=== PATIENT | female | born 2000 | race Caucasian/White ===

== ENCOUNTER 2023-05-06 17:42 | Emergency (ER) | payer OTHER ==
[2023-05-06 17:55] VITALS: BP 130/75; O2SAT 100
[2023-05-06 18:22] LABS: BASOPHILS # (AUTO) 0.1 10^3/uL (0.0-0.1); BASOPHILS % (AUTO) 0.4 %; EOSINOPHILS # (AUTO) 0.1 10^3/uL (0.0-0.7); EOSINOPHILS % (AUTO) 0.6 %; HCT - HEMATOCRIT 42.4 % (37.0-47.0); HGB - HEMOGLOBIN 14.3 g/dL (12.0-16.0); LYMPHOCYTES # (AUTO) 2.4 10^3/uL (1.5-3.5); LYMPHOCYTES % (AUTO) 20.8 %; MEAN CORPUSCULAR HEMOGLOBIN 30.7 pg (27.0-31.0); MEAN CORPUSCULAR HGB CONC 33.7 g/dL (32.0-36.0); MEAN PLATELET VOLUME 9.3 fL (7.9-10.8); MONOCYTES # (AUTO) 0.8 10^3/uL (0.0-1.0); MONOCYTES % (AUTO) 6.8 %; NEUTROPHILS # (AUTO) 8.3 10^3/uL (1.5-6.6); NEUTROPHILS % (AUTO) 71.1 %; PLT - PLATELET COUNT 280 10^3/uL (130-450); RED BLOOD COUNT 4.66 10^6/uL (4.20-5.40); WHITE BLOOD COUNT 11.7 x10^3/uL (4.8-10.8)
[2023-05-06 18:38] LABS: ALBUMIN 4.6 g/dL (3.2-5.5); ALBUMIN/GLOBULIN RATIO 1.4 (1.0-2.2); ALKALINE PHOSPHATASE 57 IU/L (42-121); ALT ALANINE AMINOTRANSFERASE 11 IU/L (10-60); AST ASPARTATE AMINOTRANSFERASE 18 IU/L (10-42); BILIRUBIN,TOTAL 0.3 mg/dL (0.2-1.0); BUN - BLOOD UREA NITROGEN 7 mg/dL (6-20); CALCIUM 9.7 mg/dL (8.5-10.3); CARBON DIOXIDE - CO2 25 mmol/L (21-32); CHLORIDE 101 mmol/L (101-111); CREATININE 0.6 mg/dL (0.6-1.3); GFR - MDRD 125 (>89); GLUCOSE 100 mg/dL (74-104); LIPASE 25 U/L (11-82); POTASSIUM 3.6 mmol/L (3.5-4.5); SODIUM 133 mmol/L (135-145)
[2023-05-06 18:43] LABS: TROPONIN I HIGH SENSITIVITY < 2.3 ng/L (2.3-14.8)
--- NOTE | 2023-05-06 18:51 | ED Physician Documentation ---
History of Present Illness - Stated complaint Stated Complaint: SOA,CHEST PX,DIZZINESS - Chief complaint Chief Complaint: Resp - Additonal information Additional information: 23-year-old female presents emergency department for evaluation of progressive shortness of air over the last 2 weeks. She states that initially she did not think much of it but is found that it is difficult to do her PT exercises in the [place] without feeling short of air especially when doing [place]. Patient reports that for quite some time she has been having issues with her heart. Because it wonky. States she is being evaluated for tachycardia and has a referral to cardiology pending. Patient is at this time approximately 10 weeks . A1. LMP 02/28/2023. Scheduled to see our OB clinic in follow-up this upcoming week. Patient denies any cough, fevers, leg swelling, no nausea or vomiting. She is denying any chest pain. Past medical history most significant for anxiety/depression only currently taking sertraline. Review of Systems Constitutional: denies: Fever Throat: reports: Reviewed and negative Cardiac: denies: Chest pain / pressure, Palpitations Respiratory: reports: Dyspnea. denies: Cough, Hemoptysis, Wheezing GI: reports: Reviewed and negative : reports: Reviewed and negative Skin: reports: Reviewed and negative PD PAST MEDICAL HISTORY - Allergies Allergies/Adverse Reactions: Allergies Allergy/AdvReac Type Severity Reaction Status Date / Time No Known Drug Allergies Allergy Verified 05/06/23 17:48 PD ED PE NORMAL - General General: Alert and oriented X 3, No acute distress - HEENT HEENT: PERRL - Neck Neck: Supple, no meningeal sign - Cardiac Cardiac: RRR (Sinus tachycardia on the monitor rate of 104), No murmur - Respiratory Respiratory: No respiratory distress, Clear bilaterally - Abdomen Abdomen: Normal bowel sounds, Soft, Non tender, Non distended - Back Back: No CVA TTP - Derm Derm: Normal color, Warm and dry, No rash - Extremities Extremities: No deformity - Neuro Neuro: Alert and oriented X 3, digital imager 2-12 intact Eye Opening: Spontaneous Motor: Obeys Commands Verbal: Oriented GCS Score: 15 Results - Vitals Vitals: Vital Signs - 24 hr 05/06/23 05/06/23 17:48 17:51 Temperature 36.5 C 36.5 C Heart Rate 114 H 114 H Respiratory 16 16 Rate Blood Pressure 130/75 130/75 O2 Saturation 100 100 Oxygen O2 Source Room air - EKG (time done) 1824 EKG releavant findings:: EKG personally interpreted by author of this note. Relevant findings are: Rate: Rate (enter#) (107) Rhythm: Sinus tachycardia [place]: Normal Intervals: Normal [place]. No: Prolonged QT QRS: Normal Ischemia: Normal ST segments Compare to prior EKG: Old EKG unavailable Computer interpretation: Agree with computer - Labs Labs: Laboratory Tests 05/06/23 05/06/23 05/06/23 15:35 18:14 18:14 WBC 11.7 H RBC 4.66 Hgb 14.3 Hct 42.4 MCV 91.0 MCH 30.7 MCHC 33.7 RDW 12.0 Plt Count 280 MPV 9.3 Neut # (Auto) 8.3 H Lymph # (Auto) 2.4 [place] # (Auto) 0.8 Eos # (Auto) 0.1 Baso # (Auto) 0.1 Absolute Nucleated RBC 0.00 Nucleated RBC % 0.0 Sodium 133 L Potassium 3.6 Chloride 101 Carbon Dioxide 25 Anion Gap 7.0 BUN 7 Creatinine 0.6 Estimated GFR (MDRD) 125 Glucose 100 Calcium 9.7 Total Bilirubin 0.3 AST 18 ALT 11 Alkaline Phosphatase 57 Troponin I High Sens < 2.3 L B-Natriuretic Peptide Total Protein 8.0 Albumin 4.6 Globulin 3.4 Albumin/Globulin Ratio 1.4 Lipase 25 Serum HCG, Qual Nasal Adenovirus (PCR) NOT DETECTED Nasal B. parapertussis DNA (PCR) NOT DETECTED Nasal Coronavir 229E PCR NOT DETECTED Nasal Coronavir HKU1 PCR NOT DETECTED Nasal Coronavir NL63 PCR NOT DETECTED Nasal Coronavir OC43 PCR NOT DETECTED Nasal Enterovir/Rhinovir PCR NOT DETECTED Nasal Influenza B PCR NOT DETECTED Nasal Influenza A PCR NOT DETECTED Nasal Parainfluen 1 PCR NOT DETECTED Nasal Parainfluen 2 PCR NOT DETECTED Nasal Parainfluen 3 PCR NOT DETECTED Nasal Parainfluen 4 PCR NOT DETECTED Nasal RSV (PCR) NOT DETECTED Nasal B.pertussis DNA PCR NOT DETECTED Nasal C.pneumoniae (PCR) NOT DETECTED Jamie Human Metapneumo PCR NOT DETECTED Nasal M.pneumoniae (PCR) NOT DETECTED Nasal SARS-CoV-2 (PCR) NOT DETECTED 05/06/23 05/06/23 18:14 18:14 WBC RBC Hgb Hct MCV MCH MCHC RDW Plt Count MPV Neut # (Auto) Lymph # (Auto) [place] # (Auto) Eos # (Auto) Baso # (Auto) Absolute Nucleated RBC Nucleated RBC % Sodium Potassium Chloride Carbon Dioxide Anion Gap BUN Creatinine Estimated GFR (MDRD) Glucose Calcium Total Bilirubin AST ALT Alkaline Phosphatase Troponin I High Sens B-Natriuretic Peptide 11 Total Protein Albumin Globulin Albumin/Globulin Ratio Lipase Serum HCG, Qual POSITIVE Nasal Adenovirus (PCR) Nasal B. parapertussis DNA (PCR) Nasal Coronavir 229E PCR Nasal Coronavir HKU1 PCR Nasal Coronavir NL63 PCR Nasal Coronavir OC43 PCR Nasal Enterovir/Rhinovir PCR Nasal Influenza B PCR Nasal Influenza A PCR Nasal Parainfluen 1 PCR Nasal Parainfluen 2 PCR Nasal Parainfluen 3 PCR Nasal Parainfluen 4 PCR Nasal RSV (PCR) Nasal B.pertussis DNA PCR Nasal C.pneumoniae (PCR) Jamie Human Metapneumo PCR Nasal M.pneumoniae (PCR) Nasal SARS-CoV-2 (PCR) - Rads (name of study) cxr Relevant Findings:: Final report received (no acte process) PD Medical Decision Making - ED course Complexity details: reviewed results, re-evaluated patient, d/w patient ED course: 23-year-old female who is reportedly 10 weeks presents the emergency department for evaluation of several weeks shortness of air. No cough, fevers, congestion. No leg swelling. No history of blood clots or cancer. Denies chest pain. She does have a longstanding history of reported tachycardia for which she has recently received a referral to cardiology though this has not yet been established. On presentation to the emergency department she is alert and well-appearing. Her vital signs show mild tachycardia that vacillates between 101 10. Sinus. Blood pressure is normal. No fevers. Room air saturations 100%. Car pulmonary auscultation revealed no wheeze or crackles. I did obtain CBC, electrolytes troponin and BNP. Per my interpretation no acute worrisome abnormalities to suggest heart failure, ACS or acute infection. Res piratory PCR panel was negative. A chest x-ray as interpreted by the radiologist showed no findings to suggest pneumonia, pleural effusion or cardiomegaly. I have very low suspicion that the patient has a PE given the chronicity of her symptoms, lack of hypoxia and by Wells criteria. I discussed the imaging findings with the patient and her at the bedside and they were comfortable with discharge home. They are scheduled to establish with OB next week I discussed with them the usual emergent return precautions for failure of symptoms to resolve Departure - Departure Disposition: 01 Home, Self Care Clinical Impression: Shortness of breath Condition: Stable Record reviewed to determine appropriate education?: Yes Comments: You are seen today in the emergency department because for several weeks you have been having shortness of air. Today in the emergency department your EKG, chest x-ray and labs did not show any worrisome findings. You do not appear to have heart failure, heart attack, pneumonia or pleural effusion. Your oxygen levels today in the emergency department are normal. I encourage you to continue the follow-up with referral to cardiology that is already been placed. Continue to see OB next week. Reasons for you to return to the emergency department would include worsening of symptoms, any fainting episodes, sudden severe chest pain or severe shortness of air Forms: PCP List
[2023-05-06 18:59] LABS: HCG,QUALITATIVE BLOOD POSITIVE
[2023-05-06 19:34] LABS: B. PARAPERTUSSIS- RESP PCR PAN NOT DETECTED; B. PERTUSSIS- RESP PCR PANEL NOT DETECTED; C. PNEUMONIAE- RESP PCR PANEL NOT DETECTED; CORONAVIRUS 229E-RESP PCR NOT DETECTED; CORONAVIRUS HKU1-RESP PCR NOT DETECTED; CORONAVIRUS NL63-RESP PCR NOT DETECTED; CORONAVIRUS OC43-RESP PCR NOT DETECTED; HUMAN METAPNEUMOVIRUS NOT DETECTED; INFLUENZA A- RESP PCR PANEL NOT DETECTED; INFLUENZA B - RESP PCR PANEL NOT DETECTED; M. PNEUMONIAE- RESP PCR PANEL NOT DETECTED; PARAINFLUENZA VIRUS 1 NOT DETECTED; PARAINFLUENZA VIRUS 2 NOT DETECTED; PARAINFLUENZA VIRUS 3 NOT DETECTED; PARAINFLUENZA VIRUS 4 NOT DETECTED; RHINOVIRUS/ENTEROVIRUS NOT DETECTED; RSV- RESP PCR PANEL NOT DETECTED; SARS-CoV-2 -RESP PCR PANEL NOT DETECTED
--- NOTE | 2023-05-06 20:19 | XRAY Report ---
PROCEDURE: Chest 1 View X-Ray INDICATIONS: Chest Pain TECHNIQUE: One view of the chest was acquired. COMPARISON: None. FINDINGS: Surgical changes and devices: None. Lungs and pleura: No pleural effusions or pneumothorax. Lungs are clear. Mediastinum: Mediastinal contours appear normal. Heart size is normal. Bones and chest wall: No suspicious bony lesions. Overlying soft tissues appear unremarkable. IMPRESSION: No acute cardiopulmonary process. Reviewed by: Kayla Goodwin MD on 05/06/2023 8:18 PM PDT Approved by: Kayla Goodwin MD on 05/06/2023 8:18 PM PDT Station ID: [id number]
== END 2023-05-06 20:35 | disposition home or self-care (01) ==
LOC: ED 17:42
DX: O99.891 Other specified diseases and conditions complicating pregnancy (principal); R06.02 Shortness of breath; Z20.822 Contact with and (suspected) exposure to COVID-19; Z3A.10 10 weeks gestation of pregnancy
CPT/HCPCS: 36415; 80053; 83690; 83880; 84484; 84703; 85025; 85379; 87633; 93005; 99283; 99284

== ENCOUNTER 2023-05-19 19:52 | Outpatient (CLI) | payer OTHER ==
--- NOTE | 2023-05-20 15:23 | Ultrasound Report ---
PROCEDURE: OB First Trimester w/TV INDICATIONS: POSITIVE TEST OUTSIDE/PRIOR DATING DATA: Last menstrual period (LMP): 02/28/2023. LMP-based estimated date of delivery (AMANDA): 12/05/2023. First dating scan (date and location): 05/19/2023. Estimated date of delivery (AMANDA) from first dating scan: 12/08/2023. TECHNIQUE: Real-time scanning was performed of the fetus and maternal pelvic organs, with image documentation. Endovaginal scanning was also performed to better visualize the fetus and maternal ovaries. COMPARISON: None FINDINGS: Intrauterine gestational sac present. Embryo: Dickens-rump length measures 4.1 cm corresponding to 11 weeks 0 days. Heart rate: 173 bpm. Other: No perigestational fluid collection. Measurement variability in dating: +/- 4 weeks by LMP, +/- 7 days by mean sac diameter (use before 6 weeks gestation if crown-rump length not able to be measured), +/- 5 days by crown-rump length (6-12 weeks gestation). Maternal organs: Ovaries appear within normal limits. IMPRESSION: 1. 11 week 0 day single living IUP corresponding to ultrasound AMANDA of 12/08/2023. Reviewed by: SUZY Medrano on 05/20/2023 3:21 PM PDT Approved by: Rodo Beyer MD on 05/20/2023 3:21 PM PDT Station ID: [id number]
== END 2023-05-19 19:53 | disposition home or self-care (01) ==
LOC: DI 19:52
PROVIDERS: ATTEND Obstetrics & Gynecology
DX: Z34.91 Encounter for supervision of normal pregnancy, unspecified, first trimester (principal); Z3A.11 11 weeks gestation of pregnancy

== ENCOUNTER 2023-05-20 08:00 | Outpatient (CLI) | payer OTHER ==
[2023-05-20 21:40] LABS: CHLAMYDIA TRACHOMATIS DNA NEGATIVE (NEGATIVE); NEISSERIA GONORRHOEAE DNA NEGATIVE (NEGATIVE); TRICHOMONAS VAGINALIS DNA NEGATIVE (NEGATIVE)
== END 2023-05-20 23:59 | disposition home or self-care (01) ==
LOC: LAB.WC 08:00
PROVIDERS: ATTEND Nurse Practitioner
DX: Z36.89 Encounter for other specified antenatal screening (principal)
CPT/HCPCS: 87491; 87591; 87661

== ENCOUNTER 2023-06-03 18:12 | Outpatient (CLI) | payer OTHER ==
[2023-06-05 08:08] LABS: HBsAG SCREEN Negative (Negative)
[2023-06-06 07:08] LABS: HIV SCREEN 4TH GENERATION Non Reactive (Non Reactive)
[2023-06-06 15:09] LABS: VARICELLA-ZOSTER AB IGG 729 index (Immune >165)
[2023-06-07 00:08] LABS: RPR Non Reactive (Non Reactive)
== END 2023-06-03 18:13 | disposition home or self-care (01) ==
LOC: LAB 18:12
PROVIDERS: ATTEND Nurse Practitioner
DX: Z34.81 Encounter for supervision of other normal pregnancy, first trimester (principal); Z36.89 Encounter for other specified antenatal screening
CPT/HCPCS: 80053; 83036; 84443; 85025; 86592; 86762; 86787; 86803; 86850; 86900; 86901; 87340; 87389

== ENCOUNTER 2023-06-26 16:17 | Outpatient (CLI) | payer OTHER ==
[2023-06-29 20:08] LABS: AFP MOM 1.71 (.); AFP VALUE 62.6 ng/mL (.); GEST. AGE ON COLLECTION DATE 15.4 weeks (.); INSULIN DEP DIABETES No (.); MATERNAL AGE AT EDD 22.7 yr (.); MULTIPLE GESTATION No (.); OPEN SPINA BIFIDA RISK 1 IN 1590 (.); RACE Caucasian (.); RESULTS Report (.); TEST RESULTS *Screen Negative* (.); WEIGHT 119 lbs (.)
== END 2023-06-26 16:18 | disposition home or self-care (01) ==
LOC: LAB 16:17
PROVIDERS: ATTEND Obstetrics & Gynecology
DX: Z36.0 Encounter for antenatal screening for chromosomal anomalies (principal)
CPT/HCPCS: 36415; 82105

== ENCOUNTER 2023-07-14 08:00 | Outpatient (CLI) | payer OTHER ==
[2023-07-14 20:26] LABS: BACTERIAL VAGINOSIS DNA NEGATIVE (NEGATIVE); CANDIDA GLABRATA DNA NEGATIVE (NEGATIVE); CANDIDA GROUP DNA POSITIVE (NEGATIVE); CANDIDA KRUSEI DNA NEGATIVE (NEGATIVE); TRICHOMONAS VAGINALIS DNA NEGATIVE (NEGATIVE)
== END 2023-07-14 23:59 | disposition home or self-care (01) ==
LOC: LAB.WC 08:00
PROVIDERS: ATTEND Obstetrics & Gynecology
DX: N89.8 Other specified noninflammatory disorders of vagina (principal)
CPT/HCPCS: 81514

== ENCOUNTER 2023-07-18 08:49 | Outpatient (CLI) | payer OTHER ==
--- NOTE | 2023-07-18 16:49 | Ultrasound Report ---
PROCEDURE: OB Detailed Eval INDICATIONS: SUPERVISION OF OUTSIDE/PRIOR DATING DATA: Last menstrual period (LMP): 02/28/2023. LMP-based estimated date of delivery (AMANDA): 12/05/2023. First dating scan (date and location): 05/19/2023. Estimated date of delivery (AMANDA) from first dating scan: 05/09/2024. The below data below was generated using the last menstrual period AMANDA of 12/05/2023 TECHNIQUE: Real-time scanning was performed of the fetus, with image documentation and biometric measurements. Endovaginal scanning: Not performed COMPARISON: 05/19/2023 FINDINGS: General: A single living intrauterine gestation is present. Presentation: Variable Placenta: Placental position is posterior, without previa. Amniotic fluid index: 9.8 cm, 7th percentile for gestational age. Largest pocket measured 3.0 cm heart rate: 152 beats per minute. Maternal cervical canal: 2.8 cm long; normal length is 2.5 cm or more. biometrics: Biparietal diameter: 4.39 cm, 19 weeks and 2 days Head circumference: 16.6 cm, 19 weeks and 3 days Abdominal circumference: 13.8 cm, 19 weeks and 2 days Femur length: 3.0 cm, 19 weeks and 2 days Estimated gestational age from initial scan: 20 weeks and 0 days Composite gestational age from present scan: 19 weeks and 2 days Estimated weight and percentile: 286 g, 14.6th percentile Measurement variability in biometric dating: +/- 10 days from 12-20 weeks gestation, +/- 2 weeks from 20-30 weeks gestation, +/- 3 weeks at 30 weeks gestation or later. Anatomic survey: Neuro: Ventricles are normal at less than 10 mm. Cisterna magna is normal at 3-11 mm. Cerebellum i s normal in size and morphology. Nuchal skin fold: Normal at less than 6 mm between 14 and 20 weeks gestational age. Face: Nose and lips, facial profile are normal. Spine: No evidence for spina bifida. Heart: 4-chambered heart is present, with normal ventricular outflow tracts. Diaphragm: Diaphragm is intact. Stomach: Left-sided stomach is present. Kidneys: No hydronephrosis. Normal is less than 5 mm in 2nd trimester, less than 7 mm in 3rd trimester. Cord: 3 vessel cord has orthotopic insertion. Bladder: Normal in size. Extremities: All 4 extremities are visualized. IMPRESSION: Single living intrauterine gestation with estimated sonographic gestational age of approximately 19 w eeks and 2 days versus approximately 20 weeks and 0 days by last menstrual period. Normal interval gr owth has occurred. Estimated weight of approximately 286 g which correlates with the 14.6th per centile Four-quadrant DOMINICK measures 9.8 cm which measures at the 7th percentile for gestational age. Largest v ertical pocket measured 3.0 cm. Normal routine second trimester anatomy screening survey. Reviewed by: Derrick Vaca MD on 07/18/2023 4:48 PM PDT Approved by: Derrick Vaca MD on 07/18/2023 4:48 PM PDT Station ID: [id number]
== END 2023-07-18 08:50 | disposition home or self-care (01) ==
LOC: DI 08:49
PROVIDERS: ATTEND Nurse Practitioner
DX: Z34.02 Encounter for supervision of normal first pregnancy, second trimester (principal)

== ENCOUNTER 2023-07-21 14:24 | Emergency (ER) | payer OTHER ==
--- NOTE | 2023-07-21 15:39 | ED Physician Documentation ---
History of Present Illness - Stated complaint Stated Complaint: HIGH HR - Chief complaint Chief Complaint: Cardiac - History obtained from History obtained from: Patient - History of Present Illness Timing: Today Pain level max: 0 Pain level now: 0 - Additonal information Additional information: 23-year-old female 1 para 0, approximately 20 weeks . She had palpitations today for about 15 minutes. This been an ongoing issue for several years. Recently finished wearing a program director but states that she had no events during monitoring. She did put on her significant other's Apple Watch to record a ECG of the event. She did feel lightheaded and dizzy during this event. No vaginal bleeding or discharge. No abdominal pain. No chest pain. Review of Systems Constitutional: denies: Fever, Chills Respiratory: denies: Cough GI: denies: Nausea, Vomiting, Diarrhea Skin: denies: Rash Musculoskeletal: denies: Neck pain, Back pain Neurologic: denies: Headache PD PAST MEDICAL HISTORY - Past Medical History Past Medical History: No - Past Surgical History Past Surgical History: No - Allergies Allergies/Adverse Reactions: Allergies Allergy/AdvReac Type Severity Reaction Status Date / Time No Known Drug Allergies Allergy Verified 07/21/23 14:47 - Living Situation Living Situation: reports: With family Living Arrangement: reports: At home PD ED PE NORMAL - Vitals Vital signs reviewed: Yes - General General: Alert and oriented X 3, No acute distress - HEENT HEENT: PERRL, Moist mucous membranes - Neck Neck: Supple, no meningeal sign - Cardiac Cardiac: RRR, No murmur, Strong equal pulses - Respiratory Respiratory: No respiratory distress, Clear bilaterally - Abdomen Abdomen: Soft, Non tender, Non distended - Derm Derm: Warm and dry - Extremities Extremities: No edema, No calf tenderness / cord - Neuro Neuro: Alert and oriented X 3 - Psych Psych: Normal mood, Normal affect Results - Vitals Vitals: Vital Signs - 24 hr 07/21/23 07/21/23 07/21/23 14:25 14:47 16:47 Temperature 36.7 C Heart Rate 104 H 94 102 H Respiratory 17 18 18 Rate Blood Pressure 111/67 108/70 109/64 O2 Saturation 100 99 99 Oxygen O2 Source Room air - EKG (time done) 1416 EKG releavant findings:: EKG personally interpreted by author of this note. Relevant findings are: Rate: Rate (enter#) (109) Rhythm: Sinus tachycardia [place]: Normal Intervals: Normal MD QRS: Normal Ischemia: Normal ST segments - Labs Labs: Laboratory Tests 07/21/23 07/21/23 15:50 15:50 WBC 11.5 H RBC 4.07 L Hgb 12.6 Hct 37.7 MCV 92.6 MCH 31.0 MCHC 33.4 RDW 12.7 Plt Count 251 MPV 9.5 Neut # (Auto) 8.7 H Lymph # (Auto) 1.8 [place] # (Auto) 0.9 Eos # (Auto) 0.1 Baso # (Auto) 0.1 Absolute Nucleated RBC 0.00 Nucleated RBC % 0.0 Sodium 133 L Potassium 4.0 Chloride 101 Carbon Dioxide 23 Anion Gap 9.0 BUN 6 Creatinine 0.5 L Estimated GFR (MDRD) 154 Glucose 68 L Calcium 9.0 Phosphorus 3.1 Magnesium 1.7 Total Bilirubin 0.4 AST 21 ALT 13 Alkaline Phosphatase 69 Total Protein 7.2 Albumin 3.8 Globulin 3.4 Albumin/Globulin Ratio 1.1 Lipase 19 PD Medical Decision Making - ED course Complexity details: reviewed results, re-evaluated patient, considered differential, d/w patient ED course: The ECG tracing was reviewed and I did review it with Dr. Corley, her hospitalist who is also a auto care center manager. She recommended a cardiac echo. This was performed and is normal. No significant lab abnormalities. No arrhythmias here. The tracing appeared to be sinus tachycardia, there were 3 beats that did appear a different morphology, unclear what these were presented. We will have her follow-up with her PCP for further care. No OB issue at this time. Patient counseled regarding signs and symptoms for which I believe and urgent re- evaluation would be necessary. Patient with good understanding of and agreement to plan and is comfortable going home at this time This document was made in part using voice recognition software. While efforts are made to proofread this document, sound alike and grammatical errors may occur. Departure - Departure Disposition: 01 Home, Self Care Clinical Impression: Palpitations Condition: Good Instructions: ED Palpitations Follow-Up: your,doctor in 1 week [Other] Comments: Your laboratory testing does not show any acute abnormalities today. I did review your tracing with a auto care center manager today, they recommended an echocardiogram, this was performed and is normal. Please follow-up with your doctor for further care. Please return if you worsen. Forms: PCP List Discharge Date/Time: 07/21/23 17:07
[2023-07-21 16:04] LABS: BASOPHILS # (AUTO) 0.1 10^3/uL (0.0-0.1); BASOPHILS % (AUTO) 0.4 %; EOSINOPHILS # (AUTO) 0.1 10^3/uL (0.0-0.7); EOSINOPHILS % (AUTO) 0.7 %; HCT - HEMATOCRIT 37.7 % (37.0-47.0); HGB - HEMOGLOBIN 12.6 g/dL (12.0-16.0); LYMPHOCYTES # (AUTO) 1.8 10^3/uL (1.5-3.5); LYMPHOCYTES % (AUTO) 15.4 %; MEAN CORPUSCULAR HGB CONC 33.4 g/dL (32.0-36.0); MEAN CORPUSCULAR VOLUME 92.6 fL (81.0-99.0); MEAN PLATELET VOLUME 9.5 fL (7.9-10.8); MONOCYTES # (AUTO) 0.9 10^3/uL (0.0-1.0); MONOCYTES % (AUTO) 7.5 %; NEUTROPHILS # (AUTO) 8.7 10^3/uL (1.5-6.6); NEUTROPHILS % (AUTO) 75.4 %; PLT - PLATELET COUNT 251 10^3/uL (130-450); RED BLOOD COUNT 4.07 10^6/uL (4.20-5.40); RED CELL DISTRIBUTION WIDTH 12.7 % (12.0-15.0); WHITE BLOOD COUNT 11.5 x10^3/uL (4.8-10.8)
[2023-07-21 16:38] LABS: ALBUMIN 3.8 g/dL (3.2-5.5); ALBUMIN/GLOBULIN RATIO 1.1 (1.0-2.2); BILIRUBIN,TOTAL 0.4 mg/dL (0.2-1.0); CREATININE 0.5 mg/dL (0.6-1.3); MAGNESIUM 1.7 mg/dL (1.7-2.3); PHOSPHORUS 3.1 mg/dL (2.5-5.0); TOTAL PROTEIN 7.2 g/dL (6.4-8.9)
[2023-07-21 17:12] VITALS: BP 109/64; O2SAT 99
== END 2023-07-21 17:07 | disposition home or self-care (01) ==
LOC: ED 14:24
DX: O26.892 Other specified pregnancy related conditions, second trimester (principal); Z3A.20 20 weeks gestation of pregnancy; R00.2 Palpitations
CPT/HCPCS: 36415; 80053; 83690; 83735; 84100; 85025; 93005; 93306; 99283; 99284

== ENCOUNTER 2023-08-14 16:06 | Outpatient (CLI) | payer OTHER ==
[2023-08-14 16:29] LABS: BASOPHILS % (AUTO) 0.5 %; EOSINOPHILS % (AUTO) 0.5 %; HCT - HEMATOCRIT 42.4 % (37.0-47.0); HGB - HEMOGLOBIN 13.4 g/dL (12.0-16.0); LYMPHOCYTES # (AUTO) 1.4 10^3/uL (1.5-3.5); MEAN CORPUSCULAR HEMOGLOBIN 30.4 pg (27.0-31.0); MEAN CORPUSCULAR HGB CONC 31.6 g/dL (32.0-36.0); MEAN CORPUSCULAR VOLUME 96.1 fL (81.0-99.0); MEAN PLATELET VOLUME 9.4 fL (7.9-10.8); MONOCYTES # (AUTO) 0.6 10^3/uL (0.0-1.0); MONOCYTES % (AUTO) 7.4 %; NEUTROPHILS # (AUTO) 5.5 10^3/uL (1.5-6.6); PLT - PLATELET COUNT 212 10^3/uL (130-450); RED BLOOD COUNT 4.41 10^6/uL (4.20-5.40); RED CELL DISTRIBUTION WIDTH 12.6 % (12.0-15.0); WHITE BLOOD COUNT 7.7 x10^3/uL (4.8-10.8)
[2023-08-14 16:30] LABS: BILIRUBIN,URINE NEGATIVE (NEGATIVE); GLUCOSE, URINE (UA) 500 mg/dL (NEGATIVE); KETONES,URINE (UA) TRACE mg/dL (NEGATIVE); LEUKOCYTE ESTERASE, URINE NEGATIVE (NEGATIVE); NITRITE,URINE NEGATIVE (NEGATIVE); OCCULT BLOOD,URINE NEGATIVE (NEGATIVE); PROTEIN,URINE NEGATIVE (NEGATIVE); UROBILINOGEN,URINE 0.2 (NORMAL) E.U./dL (NORMAL)
[2023-08-14 16:31] LABS: CLARITY,URINE CLEAR (CLEAR)
[2023-08-14 16:37] LABS: AMORPHOUS SEDIMENT,UR Moderate /LPF; BACTERIA,URINE Few /HPF (None Seen); RBC,URINE None Seen /HPF (0-5); SQUAMOUS EPITHELIAL CELL,UR MOD Squamous (<= Few); WBC,URINE 0-3 /HPF (0-5)
[2023-08-14 17:05] VITALS: BP 108/62; O2SAT 100
--- NOTE | 2023-08-14 17:27 | PROVIDER PROGRESS NOTE ---
- HPI Chief Complaint: GI symptoms Current : Vital Signs Temperature 98.1 F 08/14/23 16:19 Heart Rate 109 H 08/14/23 16:19 Respiratory Rate 16 08/14/23 16:19 Blood Pressure 108/62 08/14/23 16:19 O2 Saturation 100 08/14/23 16:19 Temperature 98.1 F 08/14/23 16:19 Heart Rate 109 H 08/14/23 16:19 Respiratory Rate 16 08/14/23 16:19 Blood Pressure 108/62 08/14/23 16:19 O2 Saturation 100 08/14/23 16:19 If not protocol: Oxygen Flow, liters/minute - Plan Plan: Patient is a 23-year-old G1, P0 at 23 weeks 6 days gestation presenting to triage for URI and issues. Since Tuesday, approximately 4 days ago, she has had a cough, nasal congestion, postnasal drip, nausea without vomiting, soft stools without diarrhea. This gradually progressed over the weekend, but has stabilized since yesterday. She is feeling unwell when checked. Note for work. She has good movement, no leaking, no vaginal bleeding. She denies headache, right upper quadrant pain, changes in vision. Physical Exam Constitutional: alert, no acute distress, well hydrated, well developed, well nourished, appropriate dress. Cardiovascular: Regular rate and rhythm. Respiratory: no respiratory distress. Lungs clear to auscultation bilaterally Abdomen: nondistended, nontender, no guarding. Psych: affect and mood appropriate, normal interaction, good eye contact. Assessment and plan Covid URI. -Discussed symptomatic care, oral hydration, rest. No signs of dehydration. -Can try Benadryl for nighttime postnasal drip symptoms. Sudafed during the day. Robitussin at night. -Nausea related to symptoms, but no true GI illness. -Paxlovid given to patient. -Work note initially given to patient. Should ideally isolate for 10 days after symptoms began.
[2023-08-14 18:08] LABS: B. PARAPERTUSSIS- RESP PCR PAN NOT DETECTED; B. PERTUSSIS- RESP PCR PANEL NOT DETECTED; C. PNEUMONIAE- RESP PCR PANEL NOT DETECTED; CORONAVIRUS 229E-RESP PCR NOT DETECTED; CORONAVIRUS HKU1-RESP PCR NOT DETECTED; CORONAVIRUS NL63-RESP PCR NOT DETECTED; CORONAVIRUS OC43-RESP PCR NOT DETECTED; HUMAN METAPNEUMOVIRUS NOT DETECTED; INFLUENZA A- RESP PCR PANEL NOT DETECTED; INFLUENZA B - RESP PCR PANEL NOT DETECTED; M. PNEUMONIAE- RESP PCR PANEL NOT DETECTED; PARAINFLUENZA VIRUS 1 NOT DETECTED; PARAINFLUENZA VIRUS 2 NOT DETECTED; PARAINFLUENZA VIRUS 3 NOT DETECTED; PARAINFLUENZA VIRUS 4 NOT DETECTED; RHINOVIRUS/ENTEROVIRUS NOT DETECTED; RSV- RESP PCR PANEL NOT DETECTED
[2023-08-14 18:09] LABS: SARS-CoV-2 -RESP PCR PANEL DETECTED
[2023-08-14] MEDS ORDERED: NIRMATRELVIR/RITONAVIR PREPACK PO STA (18:10)
--- NOTE | 2023-08-14 18:10 | ED Physician Documentation ---
ED Addendum - Addendum Addendum: 08/14/23 18:10 ordered paxlovid per OB
[2023-08-15 15:44] LABS: ESTIMATED AVERAGE GLUCOSE 88 mg/dL (70-100); HEMOGLOBIN A1c% 4.7 % (4.27-6.07)
== END 2023-08-14 18:30 | disposition home or self-care (01) ==
LOC: WFO 16:06 → FBP 16:08 → WFO 18:30
PROVIDERS: ATTEND Obstetrics & Gynecology
DX: O98.512 Other viral diseases complicating pregnancy, second trimester (principal); U07.1 COVID-19; R11.0 Nausea; Z3A.23 23 weeks gestation of pregnancy
CPT/HCPCS: 36415; 81001; 83036; 85025; 87633; 99215; J3490

== ENCOUNTER 2023-09-16 11:46 | Outpatient (CLI) | payer OTHER | END 2023-09-16 11:47 | disposition home or self-care (01) | LOC: LAB 11:46 | PROVIDERS: ATTEND Obstetrics & Gynecology | DX: Z34.02 Encounter for supervision of normal first pregnancy, second trimester (principal) | CPT/HCPCS: 36415; 82950 ==

== ENCOUNTER 2023-09-21 15:59 | Outpatient (CLI) | payer OTHER ==
[2023-09-21 16:25] LABS: HCT - HEMATOCRIT 34.9 % (37.0-47.0); HGB - HEMOGLOBIN 11.2 g/dL (12.0-16.0); MEAN CORPUSCULAR HEMOGLOBIN 29.8 pg (27.0-31.0); MEAN CORPUSCULAR HGB CONC 32.1 g/dL (32.0-36.0); MEAN CORPUSCULAR VOLUME 92.8 fL (81.0-99.0); MEAN PLATELET VOLUME 9.1 fL (7.9-10.8); RED BLOOD COUNT 3.76 10^6/uL (4.20-5.40); RED CELL DISTRIBUTION WIDTH 12.5 % (12.0-15.0); WHITE BLOOD COUNT 10.7 x10^3/uL (4.8-10.8)
== END 2023-09-21 16:00 | disposition home or self-care (01) ==
LOC: LAB 15:59
PROVIDERS: ATTEND Obstetrics & Gynecology
DX: Z34.03 Encounter for supervision of normal first pregnancy, third trimester (principal)
CPT/HCPCS: 36415; 85027; 86850

== ENCOUNTER 2023-10-12 00:04 | Emergency (ER) | payer OTHER ==
[2023-10-12 01:10] LABS: BASOPHILS # (AUTO) 0.1 10^3/uL (0.0-0.1); BASOPHILS % (AUTO) 0.5 %; EOSINOPHILS # (AUTO) 0.1 10^3/uL (0.0-0.7); EOSINOPHILS % (AUTO) 1.2 %; HCT - HEMATOCRIT 34.9 % (37.0-47.0); HGB - HEMOGLOBIN 11.1 g/dL (12.0-16.0); LYMPHOCYTES # (AUTO) 2.4 10^3/uL (1.5-3.5); LYMPHOCYTES % (AUTO) 21.9 %; MEAN CORPUSCULAR HEMOGLOBIN 29.9 pg (27.0-31.0); MEAN CORPUSCULAR HGB CONC 31.8 g/dL (32.0-36.0); MEAN CORPUSCULAR VOLUME 94.1 fL (81.0-99.0); MEAN PLATELET VOLUME 9.2 fL (7.9-10.8); MONOCYTES # (AUTO) 1.1 10^3/uL (0.0-1.0); MONOCYTES % (AUTO) 9.7 %; NEUTROPHILS # (AUTO) 7.2 10^3/uL (1.5-6.6); NEUTROPHILS % (AUTO) 65.4 %; PLT - PLATELET COUNT 238 10^3/uL (130-450); RED BLOOD COUNT 3.71 10^6/uL (4.20-5.40); RED CELL DISTRIBUTION WIDTH 12.4 % (12.0-15.0); WHITE BLOOD COUNT 10.9 x10^3/uL (4.8-10.8)
--- NOTE | 2023-10-12 01:26 | ED Physician Documentation ---
History of Present Illness - Stated complaint Stated Complaint: SOA/RAPID HR - Chief complaint Chief Complaint: Cardiac - History obtained from History obtained from: Patient - Additonal information Additional information: HPI from patient. Patient c/o sudden onset rapid palpitations associated with chest tightness, dyspnea, nausea. She is 8 months . She is here with a family member who is being evaluated in ED. While staying with the family member in her room at bedside, patient had sudden onset of these symptoms. ED RN noted patient looked pale and helped her into a wheelchair; she was then brought to another room and registers for evaluation. Patient reports she has had many similar episodes since childhood and workup thus far has not yielded diagnosis. She was T+R from this ED 07/21/23 for similar episode, no diagnostic findings on w/u which included echocardiogram (EF 55- 60%). By the time of this H+P, patient says symptoms have resolved. Denies abdominal pain, vaginal bleeding/cramping. She did have chest tightness as part of her symptoms with this episode, including sensation of concentric tightness around lower chest and upper abdomen. Review of Systems Cardiac: reports: Chest pain / pressure (resolved), Palpitations (resolved). denies: Pedal edema, Calf pain Respiratory: reports: Dyspnea (resolved). denies: Cough GI: reports: Nausea. denies: Abdominal Pain, Vomiting : reports: Now EGA (8 months) PD PAST MEDICAL HISTORY - Past Medical History Past Medical History: No - Past Surgical History Past Surgical History: No - Present Medications Home Medications: Ambulatory Orders Medication Instructions Recorded Confirmed No115/Iron/Folic Acid 2 10/12/23 [ 19 Chewable Tablet] Sertraline [Zoloft] 75 10/12/23 - Allergies Allergies/Adverse Reactions: Allergies Allergy/AdvReac Type Severity Reaction Status Date / Time No Known Drug Allergies Allergy Verified 10/12/23 00:10 - Social History Does the pt smoke?: No Smoking Status: Never smoker Does the pt drink ETOH?: No - Immunizations Immunizations are current?: Yes PD ED PE NORMAL - Vitals Vital signs reviewed: Yes - General General: Alert and oriented X 3, No acute distress, Well developed/nourished - HEENT HEENT: Moist mucous membranes - Neck Neck: Supple, no meningeal sign - Cardiac Cardiac: RRR, No murmur, No gallop, No rub - Respiratory Respiratory: No respiratory distress, Clear bilaterally - Abdomen Abdomen: Soft, Non tender, Other ( appropriate for 8 months gestation) - Derm Derm: Normal color, Warm and dry - Extremities Extremities: No edema Results - Vitals Vitals: Vital Signs - 24 hr 10/12/23 10/12/23 10/12/23 00:10 00:22 02:22 Temperature 37.1 C Heart Rate 124 H 105 H 101 H Respiratory 15 17 14 Rate Blood Pressure 123/76 131/80 H O2 Saturation 100 98 99 10/12/23 03:18 Temperature Heart Rate 96 Respiratory 16 Rate Blood Pressure 124/77 O2 Saturation 99 Oxygen O2 Source Room air - EKG (time done) No standard instances EKG releavant findings:: EKG personally interpreted by author of this note. Relevant findings are: Rate: Rate (enter#) (96) Rhythm: NSR (sinus arrhythmia) [place]: Normal Intervals: Normal [place], QRS normal QRS: Normal Ischemia: Normal ST segments - Labs Labs: Laboratory Tests 10/12/23 10/12/23 01:00 01:00 WBC 10.9 H RBC 3.71 L Hgb 11.1 L Hct 34.9 L MCV 94.1 MCH 29.9 MCHC 31.8 L RDW 12.4 Plt Count 238 MPV 9.2 Neut # (Auto) 7.2 H Lymph # (Auto) 2.4 [place] # (Auto) 1.1 H Eos # (Auto) 0.1 Baso # (Auto) 0.1 Absolute Nucleated RBC 0.00 Nucleated RBC % 0.0 Sodium 136 Potassium 3.4 L Chloride 103 Carbon Dioxide 24 Anion Gap 9.0 BUN 6 Creatinine 0.5 L Estimated GFR (MDRD) 154 Glucose 98 Calcium 9.4 Total Bilirubin 0.2 AST 12 ALT 10 Alkaline Phosphatase 83 Total Protein 6.1 L Albumin 3.2 Globulin 2.9 Albumin/Globulin Ratio 1.1 Lipase 39 PD Medical Decision Making - ED course Complexity details: reviewed results, re-evaluated patient, considered differential, d/w patient ED course: No concerning nor diagnostic findings on EKG, blood tests. No abnormal heart rates nor rhythms on cardiac monitoring during ED stay. Minimal hypokalemia noted (3.4), given PO potassium bicarbonate. Etiology of symptoms is not apparent at this time. Results d/w patient, return precautions reviewed. Departure - Departure Disposition: 01 Home, Self Care Clinical Impression: Palpitations Condition: Good Instructions: ED Palpitations Comments: There were no concerning nor diagnostic findings on tonight's tests including t he blood tests and the EKG. You did not have any abnormal heart rates nor rhythms on cardiac monitoring during your emergency department stay. As we discussed, your potassium level is just below the normal range. This is unlikely to be causing your symptoms, but a low potassium can contribute to palpitations and abnormal rhythms; thus, you were given a 1-time dose of potassium orally in the emergency department prior to discharge. Forms: PCP List Discharge Date/Time: 10/12/23 03:18
[2023-10-12 01:30] LABS: ALBUMIN 3.2 g/dL (3.2-5.5); ALBUMIN/GLOBULIN RATIO 1.1 (1.0-2.2); BILIRUBIN,TOTAL 0.2 mg/dL (0.2-1.0); CALCIUM 9.4 mg/dL (8.5-10.3); CREATININE 0.5 mg/dL (0.6-1.3); POTASSIUM 3.4 mmol/L (3.5-4.5); TOTAL PROTEIN 6.1 g/dL (6.4-8.9)
[2023-10-12] MEDS ORDERED: POTASSIUM BICARB 25 MEQ TABLET PO STA (02:38)
[2023-10-12 03:19] VITALS: BP 124/77; O2SAT 99
== END 2023-10-12 03:18 | disposition home or self-care (01) ==
LOC: ED 00:04
DX: R07.9 Chest pain, unspecified (principal); R00.2 Palpitations
CPT/HCPCS: 36415; 80053; 83690; 85025; 93005; 99283; A9270

== ENCOUNTER 2023-11-02 08:00 | Outpatient (CLI) | payer OTHER ==
[2023-11-02 23:44] LABS: BACTERIAL VAGINOSIS DNA NEGATIVE (NEGATIVE); CANDIDA GLABRATA DNA NEGATIVE (NEGATIVE); CANDIDA GROUP DNA POSITIVE (NEGATIVE); CANDIDA KRUSEI DNA NEGATIVE (NEGATIVE); TRICHOMONAS VAGINALIS DNA NEGATIVE (NEGATIVE)
== END 2023-11-02 23:59 | disposition home or self-care (01) ==
LOC: LAB.WC 08:00
PROVIDERS: ATTEND Nurse Practitioner
DX: N89.8 Other specified noninflammatory disorders of vagina (principal)
CPT/HCPCS: 81514

== ENCOUNTER 2023-11-09 08:00 | Outpatient (CLI) | payer OTHER ==
[2023-11-10 19:51] LABS: BACTERIAL VAGINOSIS DNA NEGATIVE (NEGATIVE); CANDIDA GROUP DNA NEGATIVE (NEGATIVE); CANDIDA KRUSEI DNA NEGATIVE (NEGATIVE); TRICHOMONAS VAGINALIS DNA NEGATIVE (NEGATIVE)
[2023-11-10 19:52] LABS: CANDIDA GLABRATA DNA NEGATIVE (NEGATIVE)
== END 2023-11-09 08:01 | disposition home or self-care (01) ==
LOC: LAB.WC 08:00
PROVIDERS: ATTEND Obstetrics & Gynecology
DX: O99.891 Other specified diseases and conditions complicating pregnancy (principal); N89.8 Other specified noninflammatory disorders of vagina; Z36.85 Encounter for antenatal screening for Streptococcus B
CPT/HCPCS: 81514; 87081; 87181; 87797

== ENCOUNTER 2023-11-14 09:58 | Outpatient (CLI) | payer OTHER ==
[2023-11-14 10:23] VITALS: BP 115/71
[2023-11-14 12:03] LABS: BILIRUBIN,URINE NEGATIVE (NEGATIVE); GLUCOSE, URINE (UA) NEGATIVE (NEGATIVE); KETONES,URINE (UA) NEGATIVE (NEGATIVE); LEUKOCYTE ESTERASE, URINE LARGE (NEGATIVE); NITRITE,URINE NEGATIVE (NEGATIVE); OCCULT BLOOD,URINE LARGE (NEGATIVE); PROTEIN,URINE NEGATIVE (NEGATIVE); UROBILINOGEN,URINE 0.2 (NORMAL) E.U./dL (NORMAL)
[2023-11-14 12:09] LABS: AMORPHOUS SEDIMENT,UR Few /LPF; BACTERIA,URINE Moderate /HPF (None Seen); CLARITY,URINE SL. CLOUDY (CLEAR); MUCUS,URINE Moderate Strands; RBC,URINE TNTC /HPF (0-5); SQUAMOUS EPITHELIAL CELL,UR MOD Squamous (<= Few); WBC,URINE >25 /HPF (0-5)
--- NOTE | 2023-11-23 20:26 | PROCEDURE REPORT ---
- HPI Current EDU 12/05/23 Gestation 37 Weeks and 0 Days 1 Para 0 Vital Signs Temperature 98.2 F 11/14/23 10:13 Heart Rate 119 H 11/14/23 10:13 Respiratory Rate 17 11/14/23 10:13 Blood Pressure 115/71 11/14/23 10:13 Temperature 98.2 F 11/14/23 10:13 Heart Rate 119 H 11/14/23 10:13 Respiratory Rate 17 11/14/23 10:13 Blood Pressure 115/71 11/14/23 10:13 O2 Saturation If not protocol: Oxygen Flow, liters/minute - NST Procedure NST Procedure Start Date 11/14/23 Start Time 10:05 Stop Time 12:58 Vibroacoustic Stimulation Used No Patient States Movement decreased NST reviewed. NOrmal baseline, moderate variability. acels and no decels. reactive NST. care as scheduled.
== END 2023-11-14 13:00 | disposition home or self-care (01) ==
LOC: WFO 09:58 → FBP 09:59 → WFO 13:00
PROVIDERS: ATTEND Obstetrics & Gynecology
DX: O36.8130 Decreased fetal movements, third trimester, not applicable or unspecified (principal); Z3A.37 37 weeks gestation of pregnancy
CPT/HCPCS: 59025; 81001; 87086; 99214; 99215

== ENCOUNTER 2023-11-17 16:30 | Outpatient (CLI) | payer OTHER ==
[2023-11-17 16:49] VITALS: BP 129/82
[2023-11-17 17:33] LABS: RUPTURE OF MEMBRANES PLUS NEGATIVE (NEGATIVE)
--- NOTE | 2023-11-17 17:33 | PROCEDURE REPORT ---
- HPI Vital Signs Temperature 97.5 F L 11/17/23 16:42 Heart Rate 107 H 11/17/23 16:42 Respiratory Rate Blood Pressure 129/82 H 11/17/23 16:42 O2 Saturation If not protocol: Oxygen Flow, liters/minute Current EDU 12/05/23 Gestation 37 Weeks and 3 Days 1 Para 0 Vital Signs - NST Procedure NST Procedure Start Time 10:05 Stop Time 12:58 - Results and Plan Plan: Patient is a 23-year-old G1, P0 at 37 weeks 3 days gestation here for NST. NST Performed 11/17/2023 NST Read 11/17/2023 FHT: 145 bpm baseline, moderate variability, accelerations present, no decelerations. Reactive NST Diagnosis 37 weeks gestation False labor Continue with scheduled OB care
== END 2023-11-17 17:55 | disposition home or self-care (01) ==
LOC: WFO 16:30 → FBP 16:30 → WFO 17:55
PROVIDERS: ATTEND Obstetrics & Gynecology
DX: O47.1 False labor at or after 37 completed weeks of gestation (principal); Z3A.37 37 weeks gestation of pregnancy
CPT/HCPCS: 59025; 84112; 99213

== ENCOUNTER 2023-11-18 12:00 | Inpatient (IN) | payer OTHER ==
[2023-11-18] MEDS ORDERED: OXYTOCIN/SODIUM CHLORIDE 500 ML IV PRN (16:09)
[2023-11-18] MEDS ORDERED: TERBUTALINE 1 MG/ML VIAL SUBQ PRN (16:09)
[2023-11-18] MEDS ORDERED: lidocaine 1% 20 ML MDV ID PRN (16:09)
[2023-11-18] MEDS ORDERED: NIFEdipine 10 MG CAPSULE PO PRN (16:09)
[2023-11-18] MEDS ORDERED: fentaNYL 100 MCG/2 ML VIAL IVP PRN (16:09)
[2023-11-18] MEDS ORDERED: miSOPROStoL 200 MCG TABLET BC PRN (16:09)
[2023-11-18] MEDS ORDERED: OXYTOCIN 10 UNIT/ML VIAL IM PRN (16:09)
[2023-11-18] MEDS ORDERED: miSOPROStoL 200 MCG TABLET PR PRN (16:09)
[2023-11-18] MEDS ORDERED: LABETALOL 20 MG/4 ML SYRINGE IVP PRN ×3 (16:09)
[2023-11-18] MEDS ORDERED: METHYLERGONOVINE 0.2 MG/ML VIAL IM PRN (16:09)
[2023-11-18] MEDS ORDERED: CARBOPROST TROMETHAMINE 250 MCG/ML VIAL IM PRN (16:09)
[2023-11-18] MEDS ORDERED: hydrALAZINE INJ 20 MG/ML VIAL IVP PRN ×2 (16:09)
[2023-11-18] MEDS ORDERED: TRANEXAMIC ACID IN NACL 1,000 MG/100 ML BAG IV PRN (16:09)
--- NOTE | 2023-11-18 16:49 | PHARMACY PROGRESS NOTE ---
- Best Possible Medication History Admit Date and Time: 11/18/23 1609 Processed by: Nursing As the person ultimately responsible for medication therapy, providers are able to order a medication from an existing home medication list in [facility] via the "Reconcile Routine" prior to Confirmation of that medication by data support analyst. Such practice is discouraged except when the physician, in their clinical judgment, deems that a medical need exists for a medication without regard to previous use.
[2023-11-18] MEDS ORDERED: SODIUM CHLORIDE FLUSH 0.9% 10 ML SYRINGE IVP SCH (17:00)
[2023-11-18] MEDS: AMPICILLIN 2 GM in SODIUM CHLORIDE 0.9% MINIBAG 100 ML IV ONE (17:15)
[2023-11-18] MEDS: LACTATED RINGERS 1,000 ML IV PRN (17:17)
[2023-11-18 17:38] LABS: BASOPHILS # (AUTO) 0.1 10^3/uL (0.0-0.1); BASOPHILS % (AUTO) 0.4 %; EOSINOPHILS # (AUTO) 0.1 10^3/uL (0.0-0.7); EOSINOPHILS % (AUTO) 0.6 %; HCT - HEMATOCRIT 35.7 % (37.0-47.0); HGB - HEMOGLOBIN 11.4 g/dL (12.0-16.0); LYMPHOCYTES % (AUTO) 16.6 %; MEAN CORPUSCULAR HEMOGLOBIN 27.9 pg (27.0-31.0); MEAN CORPUSCULAR HGB CONC 31.9 g/dL (32.0-36.0); MEAN CORPUSCULAR VOLUME 87.3 fL (81.0-99.0); MEAN PLATELET VOLUME 9.9 fL (7.9-10.8); MONOCYTES % (AUTO) 8.2 %; NEUTROPHILS # (AUTO) 8.9 10^3/uL (1.5-6.6); NEUTROPHILS % (AUTO) 73.3 %; PLT - PLATELET COUNT 243 10^3/uL (130-450); RED BLOOD COUNT 4.09 10^6/uL (4.20-5.40); RED CELL DISTRIBUTION WIDTH 12.7 % (12.0-15.0); WHITE BLOOD COUNT 12.1 x10^3/uL (4.8-10.8)
[2023-11-18] MEDS: SODIUM CHLORIDE FLUSH 0.9% 10 ML SYRINGE IVP PRN (18:20)
[2023-11-18] MEDS: SERTRALINE 25 MG TABLET PO SCH (19:17)
[2023-11-18] MEDS: AMPICILLIN 1 GM in SODIUM CHLORIDE 0.9% MINIBAG 100 ML IV SCH (21:30)
--- NOTE | 2023-11-18 22:51 | HISTORY & PHYSICAL EXAMINATION ---
Admit History - Visit Reason Visit Reason: Contractions - : 1 Care: positive: [facility] Risk/History: positive: None, Other (FOB is in [place] with [employer]. His parents are here with her. He is working on getting a flight back to be with her. anticipated arrival about 1300 tomorrow to [place]. patient hopes he will be here for delivery and does not want to augment labor until he arrives.) Smoking Status: Former smoker - Mother's Labs Mother's Blood Type: positive: O Mother's RH: positive: Negative GBS: positive: Group B Strep Positive Rubella Status: positive: Immune - Other Maternal History Other Maternal History: LMP: 02/28/2023 AMANDA by LMP: 12/05/2023 Initial US Date 05/19/2023, US Age 11 weeks 0 days, AMANDA by ultrasound: 12/08/2023 Final AMANDA: 12/05/2023 by LMP consistent with 11-week ultrasound rh neg. did get rhogam. Hx of rapid heart rate (?SVT- [place] referral to cardiology pending. Low risk per Holter monitor report). Following with [facility]. Per cardiology, they are not going to reexamine till 9 months . Genetic testing: [id number]- Neg AFP- Neg FAS:{lacenta: Posterior w/o previa/ 3VC/DOMINICK: Normal /EFW: 14.6% 50gm OGCT: 110 - HPI Current EDU 12/05/23 Gestation 37 Weeks and 4 Days 1 Vital Signs Temperature 98.2 F 11/18/23 12:13 Heart Rate 122 H 11/18/23 12:13 Respiratory Rate 16 11/18/23 12:13 Blood Pressure 132/86 H 11/18/23 12:13 Temperature 98.8 F 11/18/23 18:07 Heart Rate 113 H 11/18/23 15:29 Respiratory Rate 16 11/18/23 15:29 Blood Pressure 127/68 11/18/23 15:29 O2 Saturation 100 11/18/23 15:29 If not protocol: Oxygen Flow, liters/minute - NST Procedure NST Procedure Start Time 16:42 Stop Time 17:41 Meds/Allgy - Home Medications Home Medications: Ambulatory Orders Medication Instructions Recorded Confirmed No115/Iron/Folic Acid 2 tab PO DAILY 10/12/23 11/18/23 [ 19 Chewable Tablet] Sertraline [Zoloft] 75 mg PO HS 10/12/23 11/18/23 - Allergies Allergies/Adverse Reactions: Allergies Allergy/AdvReac Type Severity Reaction Status Date / Time tioconazole AdvReac Rash Verified 11/18/23 16:17 [From Monistat 1 (tioconazole)] Review of Systems - Constitutional Constitutional: reports: Fatigue - Respiratory Respiratory: denies: Cough - Neurological Neurological: denies: Headache Physical - Abdominal Exam Vital Signs: Temp Pulse Resp BP Pulse Ox O2 Flow Rate 98.8 F 113 H 16 127/68 100 11/18/23 18:07 11/18/23 15:29 11/18/23 15:29 11/18/23 15:29 11/18/23 15:29 Contraction Frequency (min/apart): irregular Contraction Intensity: positive: Mild to moderate Uterine Resting Tone: positive: Soft - Monitoring Heart Rate Baseline: 145 Strip Review: positive: Category I - Presentation Presentation: positive: Vertex - Vaginal Exam Membranes: positive: Membranes ruptured (while in triage deciding if she wanted to stay or not in mid afternoon today. clear fluid.) Dilation (in cm): 5 Effacement (%): 100 Station: positive: -2 - Speculum Exam Speculum Exam Performed: positive: No Plan for Labor - Plan For Labor I expect patient to be DC'd or transferred within 96 hours.: Yes Plan for Labor: G1 at 37 w 4 d admit for labor, although still seems to be in latent labor even now. I saw her at 1700. she was not active then but SROM and 5 cm. baby is category 1. ampiciliin for GBS started after SROM. just got 2nd dose. discussed increased risk of infection after SROM as time progresses. recommend very limited cervical exams until she is in active labor or ready for pitocin. She is hoping that she will not develop any issue that will push us to recommend starting pitocin before Matt gets here tomorrow afternoon from [facility]. She is willing to start pitocin with any signs of infection. O neg so will need rhogam work up. Rapid heart rate, but work up neg so far. no sx now. will just watch her in labor. She can let us know if she h sx. no ultrasound since anatomy scan. growth seems normal. EFW 6.5 pounds. weight gain 32 pounds. not obese.
[2023-11-19] MEDS: ONDANSETRON 4 MG/2 ML VIAL IVP PRN (02:16)
[2023-11-19] MEDS: CALCIUM CARBONATE CHEW 500 MG TABLET PO PRN (07:14)
--- NOTE | 2023-11-19 11:05 | PROVIDER PROGRESS NOTE ---
Labor Progress Note - Uterine Monitoring Uterine Monitoring Mode: positive: External toco Contraction Frequency (min/apart): Irregular - Monitoring Monitor Mode: positive: External ultrasound Heart Rate Baseline: 135 Heart Rate Variability: positive: Moderate (6-25 bmp) Accelerations: positive: Present, 15x15 Decelerations: positive: None - Labor Progress Note Labor Progress Note/Additional Text: Patient ruptured for approximately 20 hours. Plan currently to wait until her p artner gets here. He should landed in [place] at approximately 1 PM. Once he lands, will check her cervix and start oxytocin as will likely take several hours to get her regular contractions. At that point she will be in active labor when her partner arrives. No fever, chills. No abnormal discharge. No signs of infection. We discussed if she does not develop this prior to then, we will proceed with induction. Patient agrees and will let us know if her situation changes.
[2023-11-19] MEDS: OXYTOCIN/SODIUM CHLORIDE 500 ML IV SCH (14:34)
--- NOTE | 2023-11-19 17:50 | PROVIDER PROGRESS NOTE ---
Labor Progress Note - Uterine Monitoring Uterine Monitoring Mode: positive: External toco : 2-3 - Monitoring Monitor Mode: positive: External ultrasound Heart Rate Baseline: 135 Heart Rate Variability: positive: Moderate (6-25 bmp) Accelerations: positive: Present, 15x15 Decelerations: positive: None Strip Review: positive: Category I - Vaginal Exam Dilation (in cm): 7 Effacement (%): 100 Station: -1 - Labor Progress Note Labor Progress Note/Additional Text: Progressing with oxytocin, now at 4 cm. After consent, forebag ruptured with a small amount of clear fluid. No fever or chills. Maternal tachycardia present. Some anxiety, but will also look for signs of infection. Starting next dose of ampicillin now.
[2023-11-19] MEDS ORDERED: ROPIVACAINE 0.2% 200 MG/100 ML BAG EP ONE (18:14)
[2023-11-19] MEDS ORDERED: LIDOCAINE-PF 2% 10 ML AMP SUBQ ONE (18:31)
[2023-11-19] MEDS ORDERED: fentaNYL 100 MCG/2 ML VIAL ONE (18:31)
[2023-11-19] MEDS ORDERED: SODIUM CHLORIDE 0.9% 10 ML VIAL IVP ONE (18:31)
[2023-11-19] MEDS ORDERED: NALOXONE 0.4 MG/ML VIAL IVP PRN (19:05)
[2023-11-19] MEDS ORDERED: ePHEDrine 50 MG/ML VIAL IVP PRN (19:05)
[2023-11-19] MEDS ORDERED: ROPIVACAINE 0.2% 200 MG/100 ML BAG EP PRN (19:05)
--- NOTE | 2023-11-19 19:05 | ANESTHESIA ---
Pre-Anesthesia VS, & Labs - Diagnosis Active labor - Procedure vaginal delivery Vital Signs: Temp Pulse Resp BP Pulse Ox O2 Flow Rate 37.1 C 113 H 16 127/68 100 11/18/23 18:07 11/18/23 15:29 11/18/23 15:29 11/18/23 15:29 11/18/23 15:29 Height: 5 ft 1 in Weight (kg): 67.585 kg Body Mass Index: 28.1 BMI Classification: Overweight - NPO Last Fluid Intake: clear liquids - Is Patient ?: Yes - Lab Results Current Lab Results: Laboratory Tests 11/18/23 17:19: WBC 12.1 H, RBC 4.09 L, Hgb 11.4 L, Hct 35.7 L, MCV 87.3, MCH 27.9, MCHC 31.9 L, RDW 12.7, Plt Count 243, MPV 9.9, Neut # (Auto) 8.9 H, Lymph # (Auto) 2.0, [place] # (Auto) 1.0, Eos # (Auto) 0.1, Baso # (Auto) 0.1, Absolute Nucleated RBC 0.00, Nucleated RBC % 0.0 11/18/23 17:19: Blood Type O NEGATIVE, Antibody Screen POSITIVE, Antibody Identification See Comments, WILLIAM, IgG Specific NEGATIVE, WILLIAM, Polyspecific NEGATIVE, WILLIAM, C3d Specific NEGATIVE, Crossmatch See Detail Fish Bones: 11/18/23 17:19 Home Medications and Allergies Active Medications Calcium Carbonate/Glycine (Calcium Carbonate Chew 500 Mg Tablet) 500 mg PO BID PRN PRN Reason: NEEDED PER PROVIDER ORDERS Last Admin: 11/19/23 07:14 Dose: 500 mg Carboprost Tromethamine (Carboprost Tromethamine 250 Mcg/Ml Vial) 250 mcg IM .ONCE PRN PRN Reason: Hemorrhage Fentanyl (Fentanyl 100 Mcg/2 Ml Vial) 50 mcg IVP Q1H PRN PRN Reason: Severe Pain (score 7-10) Hydralazine HCl (Hydralazine Inj 20 Mg/Ml Vial) 5 - 10 mg IVP Q20M PRN; Protocol PRN Reason: SBP> or= 160 OR DBP> or= 110 Hydralazine HCl (Hydralazine Inj 20 Mg/Ml Vial) 10 mg IVP .ONCE PRN; Protocol PRN Reason: SBP> or= 160 OR DBP> or= 110 Lactated Ringer's (Lr) 500 mls @ 999 mls/hr IV PRN PRN PRN Reason: other Last Infusion: 11/19/23 14:34 Dose: 125 mls/hr Oxytocin/Sodium Chloride (Pitocin/Sodium Chloride) 500 mls @ 999 mls/hr IV PRN PRN; Protocol PRN Reason: POST- HEMORR PREVENTION Tranexamic Acid (Tranexamic 1,000 Mg/100ml-Nacl) 1,000 mg in 100 mls @ 600 mls/hr IV Q30M PRN PRN Reason: EBL >1200mL and within 3hr Ampicillin Sodium 1 gm/ Sodium (Chloride) 100 mls @ 200 mls/hr IV Q4H VICKY Last Admin: 11/19/23 17:45 Dose: 200 mls/hr Oxytocin/Sodium Chloride (Pitocin/Sodium Chloride) 500 mls @ 2 mls/hr IV TITR VICKY; Protocol Last Titration: 11/19/23 15:04 Dose: 4 milliunit/min, 4 mls/hr Labetalol HCl (Labetalol 20 Mg/4 Ml Syringe) 20 - 80 mg IVP Q10M PRN; Protocol PRN Reason: SBP> or= 160 OR DBP> or= 110 Labetalol HCl (Labetalol 20 Mg/4 Ml Syringe) 20 mg IVP .ONCE PRN; Protocol PRN Reason: SBP> or= 160 OR DBP> or= 110 Labetalol HCl (Labetalol 20 Mg/4 Ml Syringe) 20 - 40 mg IVP Q10M PRN; Protocol PRN Reason: SBP> or= 160 OR DBP> or= 110 Lidocaine HCl (Lidocaine 1% 20 Ml Mdv) 20 ml ID .ONCE PRN PRN Reason: PERINEAL REPAIR Stop: 11/21/23 16:09 Methylergonovine Maleate (Methylergonovine 0.2 Mg/Ml Vial) 0.2 mg IM .ONCE PRN PRN Reason: Hemorrhage Misoprostol (Misoprostol 200 Mcg Tablet) 600 mcg BC .ONCE PRN PRN Reason: Hemorrhage Misoprostol (Misoprostol 200 Mcg Tablet) 800 mcg GA .ONCE PRN PRN Reason: Hemorrhage Nifedipine (Nifedipine 10 Mg Capsule) 10 - 20 mg PO Q20M PRN; Protocol PRN Reason: SBP> or= 160 OR DBP> or= 110 Ondansetron HCl (Ondansetron 4 Mg/2 Ml Vial) 4 mg IVP Q6HR PRN PRN Reason: Nausea / Vomiting Last Admin: 11/19/23 14:05 Dose: 4 mg Oxytocin (Oxytocin 10 Unit/Ml Vial) 10 unit IM .ONCE PRN PRN Reason: Step One if no IV access. Sertraline HCl (Sertraline 25 Mg Tablet) 75 mg PO 1900 VICKY Sodium Chloride (Sodium Chloride Flush 0.9% 10 Ml Syringe) 10 ml IVP PRN PRN PRN Reason: NEEDED PER PROVIDER ORDERS Last Admin: 11/19/23 09:57 Dose: 10 ml Sodium Chloride (Sodium Chloride Flush 0.9% 10 Ml Syringe) 10 ml IVP Q8H VICKY Terbutaline Sulfate (Terbutaline 1 Mg/Ml Vial) 0.25 mg SUBQ .ONCE PRN PRN Reason: Tachystole No115/Iron/Folic Acid [ 19 Chewable Tablet] 2 tab PO DAILY 10/12/23 Sertraline [Zoloft] 75 mg PO HS 10/12/23 Allergies/Adverse Reactions: Allergies Allergy/AdvReac Type Severity Reaction Status Date / Time tioconazole AdvReac Rash Verified 11/18/23 16:17 [From Monistat 1 (tioconazole)] Anes History & Medical History - Medical History Cardiovascular: reports: Other (tachycardia during . Was seen by cardiology.) Pulmonary: reports: None Gastrointestinal: reports: None Urinary: reports: None Neuro: reports: None Musculoskeletal: reports: None Endocrine/Autoimmune: reports: None Blood Disorders: reports: None Skin: reports: None Smoking Status: Former smoker Psychosocial: reports: No issues indicated History of Cancer?: No - Obstetrical History : 1 Events: reports: None, Other (FOB is in [place] with [employer]. His parents are here with her. He is working on getting a flight back to be with her. anticipated arrival about 1300 tomorrow to [place]. patient hopes he will be here for delivery and does not want to augment labor until he arrives.) Exam General: Alert, Oriented x3, Cooperative, Severe distress (Severe pain) Dental: WNL Mouth Openin Fingerbreadth Neck Mobility: Normal Mallampati classification: II Thyromental Distance: 4-6 cm Mental/Cognitive Status: Alert/Oriented X3 Plan Anesthesia Type: Epidural Consent for Procedure(s) Verified and Reviewed: Yes Code Status: Attempt Resuscitation ASA classification: 2-Mild systemic disease Is this case an emergency?: No
[2023-11-19] MEDS ORDERED: CALCIUM CARBONATE CHEW 500 MG TABLET PO PRN (21:24)
[2023-11-19] MEDS ORDERED: SIMETHICONE CHEW 80 MG TABLET PO PRN (21:24)
[2023-11-19] MEDS ORDERED: ONDANSETRON 4 MG/2 ML VIAL IVP PRN (21:24)
--- NOTE | 2023-11-19 21:40 | DELIVERY NOTE ---
Delivery Note - Labor Labor: positive: Augmented by oxytocin - Delivery Method Delivery Method: positive: Spontaneous vaginal delivery - Presentation Presentation: positive: ASNTO - right occiput anterior - Nuchal Cord Nuchal Cord: positive: Present, Reduced (At delivery of abdomen) - Anesthetic Anesthetic Type: - Amniotic Fluid Description Amniotic Fluid Description: positive: Clear - Laceration Laceration: positive: 1st degree (Right labial), Labial - Suture Suture Type: positive: Vicryl Suture Size: positive: 3-0 - Delivery Outcome Delivery Outcome: positive: Livebirth - : positive: Placed in direct skin contact with mother, Suctioned, Bulb syringe, Stimulated, Warmed, Calder used, Warmer used [place] sex: positive: Male - Cord Cord: positive: 3 vessels - Placenta Placenta: positive: Intact - Estimated Blood Loss Estimated Blood Loss (in cc): 250 - Post Delivery Events Post Delivery Events: positive: No post delivery events - Delivery Comments (Free Text/Narrative) Delivery Comments (Free Text/Narrative): Preoperative Diagnoses 37 weeks gestation Prolonged prelabor rupture membranes Postoperative Diagnoses Same Delivery of live barbour Status post spontaneous vaginal delivery Patient admitted at 37 weeks 4 days gestation for prelabor rupture of membranes. She was 5 cm and rishi intermittently. Her partner was coming home from [facility], so she declined augmentation as long as there were no signs of infection. We started oxytocin when his plane landed. After rishi for some time, she was 6 cm and a forebag was ruptured. She tried nitrous oxide for pain relief, but this was insufficient and requested an epidural. After good pain control was achieved, she began pushing. After a short time, there was a short period of bradycardia and an FSE was placed. The fetus recovered and we had a period of tachycardia, but overall had a reassuing heart tracing thereafter. She pushed effectively in various positions until ready to deliver. Delivery Summary: Patient was placed in the dorsal lithotomy position. Upon maternal pushing the head was delivered atraumatically. There was a nuchal cord that was not able to be reduced, so we delivered the abdomen and at that time, the nuchal cord was reduced. This was followed by the anterior shoulder, posterior shoulder, then the remainder of the infant's body. A male was delivered. The infant was placed on its mother's chest . After the cord finished pulsating, the umbilical cord was clamped times two and cut. 1-minute was 4 and the was taken to the warmer. It received a short course of PPV then CPAP, but did very well with a 5-minute of 9 and was returned to its mother shortly after. The placenta delivered intact with three vessel cord. Placenta was not sent to pathology. Thirty units of Pitocin were added to the IV fluid and allowed to run freely. Uterine massage was performed until uterus was deemed firm. Upon inspection of the perineum, a hymenal tear extending to a first-degree was noted and repaired with a running suture of 3-0 Vicryl. Upon re-inspection the patient was hemostatic. Uterus again massaged and found to be firm. Needle and sponge counts were correct. Patient was stable and allowed to recover in L&D room. Infant was stable and remained in room with mother. weight is pending at this time.
[2023-11-19] MEDS ORDERED: LACTATED RINGERS 1,000 ML IV SCH (22:00)
[2023-11-19] MEDS: IBUPROFEN 600 MG TABLET PO SCH (22:38)
[2023-11-19] MEDS: DOCUSATE SODIUM 100 MG CAPSULE PO PRN (22:38)
[2023-11-19] MEDS: SERTRALINE 25 MG TABLET PO SCH (22:39)
[2023-11-19] MEDS: ACETAMINOPHEN 500 MG TABLET PO SCH (22:49)
--- NOTE | 2023-11-20 09:26 | PROVIDER PROGRESS NOTE ---
Subjective - Subjective Subjective: Subjective Patient reports she is doing well. Lochia appropriate. Denies heavy bleeding. Ambulating. Pelvic and abdominal pain well-controlled. Tolerating oral intake. Diet: Regular. Voiding without difficulty. Passing flatus. Denies BM. Patient is bonding with baby in room Breast feeding going well. Denies feeling lightheaded, dizzy or excessively fatigued. Objective General: Alert, oriented, no apparent distress. Cardiovascular: Regular rate. Regular rhythm. Lungs: No increased work of breathing. Abdomen: Uterus firm. Below umbilicus. No guarding or rebound. Extremities: No pain on palpation. No cords palpated. Distal pulses intact. Assessment and Plan day 1 -Routine care -Anticipate discharge tomorrow Rh- -RhoGAM workup today. RhoGAM if indicated Tachycardia -Intermittent, and no significant symptoms. Currently resolved. -outpatient reassessment by cardiology already planned. Objective - Vital Signs/Intake & Output Vital Signs: Vital Signs x48h Temp Pulse Resp BP Pulse Ox 11/20/23 05:21 98.2 F 102 H 16 113/65 98 11/20/23 01:50 98.2 F 127 H 16 135/81 H 98 Intake & Output: Intake & Output 11/17/23 11/18/23 11/19/23 11/20/23 23:59 23:59 23:59 23:59 Intake Total 625.653 0115.167 Output Total 1200 Balance 903.786 2952.167 -1200 - Lab Results Fish Bones: 11/18/23 17:19 Other Labs: Lab Results x24hrs 11/20/23 11/18/23 Range/Units 05:51 17:19 Blood Type O NEGATIVE O NEGATIVE Weak D (Du) WEAK-D NEGATIVE Antibody Screen POSITIVE Antibody Identification See Comments WILLIAM, IgG Specific NEGATIVE WILLIAM, Polyspecific NEGATIVE WILLIAM, C3d Specific NEGATIVE Maternal Bleed NEGATIVE (NEGATIVE) Crossmatch See Detail
[2023-11-20] MEDS: RHO(D) IMMUNE GLOBULIN 300 MCG SYRINGE IM ONE (17:47)
[2023-11-21] MEDS: ONDANSETRON ODT 4 MG TABLET TL PRN (00:26)
--- NOTE | 2023-11-21 09:17 | DISCHARGE SUMMARY ---
Discharge Summary Admit Date: 11/18/23 Discharge Date: 11/21/23 Discharging Provider: Tran Shultz MD Code Status: Attempt Resuscitation Condition at Discharge: Good Discharge Disposition: 01 Home, Self Care - DIAGNOSES Admission Diagnoses: term in labor, PPROM Discharge Diagnoses with Status of Each Condition: stable, delivered. no complications. - HPI History of Present Illness: presented in early labor 5 cm. SROM while here. Admitted. - HOSPITAL COURSE Hospital Course: We started Ampicillin for GBS prophylaxis. She did not want to start pitocin until her was back in [place] from [place]. It was started around when he landed and then she delivered a short while after her arrived. By that time she her membranes had been ruptured for about 28 hours but no signs of infection. she was counseled appropriately about these risks. PP course was unremarkable. She is dc home in am of PPD 2. - ALLERGIES Allergies/Adverse Reactions: Allergies Allergy/AdvReac Type Severity Reaction Status Date / Time tioconazole AdvReac Rash Verified 11/18/23 16:17 [From Monistat 1 (tioconazole)] - MEDICATIONS Home Medications: Ambulatory Orders Medication Instructions Recorded Confirmed No115/Iron/Folic Acid 2 tab PO DAILY 10/12/23 11/18/23 [ 19 Chewable Tablet] Sertraline [Zoloft] 75 mg PO HS 10/12/23 11/18/23 Acetaminophen 650 mg PO Q4HR PRN #30 ea 11/21/23 Docusate Sodium 100Mg Capsule 100 - 200 mg PO BID PRN #60 cap 11/21/23 [Colace 100Mg Capsule] Ibuprofen [Motrin] 600 mg PO Q6H PRN #30 tab 11/21/23 Ondansetron Odt [Zofran Odt] 4 mg TL Q6H PRN #10 tablet 11/21/23 - PHYSICAL EXAM AT DISCHARGE General Appearance: positive: No acute distress Respiratory: positive: No respiratory distress Abdomen: positive: Non-tender Skin: positive: Color nml - LABS Result Diagrams: 11/18/23 17:19 - FOLLOW UP Follow Up: [facility] - TIME SPENT Time Spent in Discharge (Minutes): 15
[2023-11-21 10:41] VITALS: BP 131/81; O2SAT 99
--- NOTE | 2023-11-21 12:59 | Labor Flowsheet ---
Labor Flowsheet Datetime Report Generated by CPN: 11/21/2023 12:59 Datetime: 11/21/2023 10:25 VITAL SIGNS NBP Sys/Ayana/Mean (mmHg): 131 : 71 : 84 Pulse: 96 Datetime: 11/20/2023 13:10 SpO2 (%): 96 Datetime: 11/19/2023 23:15 Stage of : Recovery Respirations: 18 PAIN Pain Scale: 0 Datetime: 11/19/2023 22:32 LaborFlag: Labor Datetime: 11/19/2023 22:00 Temperature (C): 37.0 Datetime: 11/19/2023 20:52 FHR Baseline Rate : 170 Comments: prepare for delivery Datetime: 11/19/2023 20:47 COMMUNICATION Communication: RN at Bedside; RN Reviewed Strip; Provider at Bedside Datetime: 11/19/2023 20:35 Duration (sec): 40 Datetime: 11/19/2023 20:34 Frequency (min): 2.5 Quality: Strong Pattern: Normal: <= 5 Contractions in 10 Minutes Resting Tone (Palpate): Relaxed Variability: Moderate 6-25 bpm Accelerations: 15X15 Decelerations: Variable Category: Category II Datetime: 11/19/2023 20:20 UTERINE ACTIVITY Monitor Mode: External Contraction Comments: pushing effectively Datetime: 11/19/2023 20:01 Anesthesia Level Check: T11 Datetime: 11/19/2023 19:55 Patient Position/Activity: Right Extreme Datetime: 11/19/2023 19:54 Patient Care Comments: pushing Datetime: 11/19/2023 19:52 Communication Comments: continues to push effectively Datetime: 11/19/2023 19:43 I/O Interventions: Straight Cath (ml) @ 20 Datetime: 11/19/2023 19:33 Amniotic Fluid Amount: None Datetime: 11/19/2023 19:00 Monitor Interventions for UA: [place] Adjusted Monitor Interventions for FHR: Ultrasound Adjusted FHR Baseline Changes: Bradycardia Datetime: 11/19/2023 18:54 PATIENT CARE IV/Blood Work: New IV Bag Hung Datetime: 11/19/2023 18:45 ASSESSMENT A Monitor Mode: Telemetry Datetime: 11/19/2023 18:43 VAGINAL EXAM Dilatation (cm): 10.0 Station: -1 Exam by: Saad Datetime: 11/19/2023 18:25 Epidural Procedure: Loading Dose Datetime: 11/19/2023 18:21 ANESTHESIA Anesthesia Plans: Local Datetime: 11/19/2023 18:16 Anesthesia Comments: set up for epidural Datetime: 11/19/2023 18:12 MEDICATIONS Pitocin (milliunits): Discontinued Datetime: 11/19/2023 17:56 Pain Coping: Requesting Pain Medication or Epidural Pain Assessment Comments: NATANAEL Dow contacted Datetime: 11/19/2023 17:45 Pitocin Checklist: At Least 1 Acceleration of 15 bpm x 15 Seconds in 30 Minutes or Adequate Variabi lity; No More than 1 Late Deceleration Occurred in Past 30 Minutes; No More than 2 Variable Decelerat ions > 60 Seconds in Duration and decreasing >60 bpm in 30 minutes; No More than 5 Uterine Contractio ns in 10 Minutes for any 20 Minute Interval; Uterus Palpates Soft between Contractions Datetime: 11/19/2023 17:43 Membrane Status: Ruptured Membranes Rupture Method: Artificial Membrane Comments: Additional amniotic sac ruptured by MD, additional clear fluid noted Datetime: 11/19/2023 16:35 Temperature Route: Oral Datetime: 11/19/2023 14:05 Antiemetics/Antacids: Zofran (mg) @ 4 Datetime: 11/19/2023 13:59 Antibiotics: Ampicillin IV 1 Gm Datetime: 11/19/2023 13:23 Effacement (%): 100 Datetime: 11/18/2023 19:17 Medication Comments: Sertaline 75 mg Datetime: 11/18/2023 17:30 Provider Reviewed Strip: Yes Strip Reviewed by: Dr. Shultz Provider Notified (Name): Dr. Shultz Datetime: 11/18/2023 14:30 Membranes Ruptured Date/Time: 11/18/2023 14:30 Amniotic Fluid Color: Clear Amniotic Fluid Odor: None Vaginal Bleeding: None Nitrazine: Positive
== END 2023-11-21 12:20 | disposition home or self-care (01) | DRG 807 ==
LOC: WFO 12:00 → FBP 12:03 → WFO 16:08 → FBP 16:09
PROVIDERS: ADMIT Obstetrics & Gynecology; ATTEND Obstetrics & Gynecology
PROC: 10E0XZZ Delivery of Products of Conception, External Approach (ICD-10-PCS; principal; 2023-11-19)
PROC: 0HQ9XZZ Repair Perineum Skin, External Approach (ICD-10-PCS; 2023-11-19)
PROC: 4A1HXCZ Monitoring of Products of Conception, Cardiac Rate, External Approach (ICD-10-PCS; 2023-11-19)
PROC: 4A1H7CZ Monitoring of Products of Conception, Cardiac Rate, Via Natural or Artificial Opening (ICD-10-PCS; 2023-11-19)
PROC: 10H073Z Insertion of Monitoring Electrode into Products of Conception, Via Natural or Artificial Opening (ICD-10-PCS; 2023-11-19)
DX: O42.92 Full-term premature rupture of membranes, unspecified as to length of time between rupture and onset of labor (principal); Z37.0 Single live birth; O99.824 Streptococcus B carrier state complicating childbirth; Z3A.37 37 weeks gestation of pregnancy; O70.0 First degree perineal laceration during delivery; O26.893 Other specified pregnancy related conditions, third trimester; Z67.91 Unspecified blood type, Rh negative; O69.81X0 Labor and delivery complicated by cord around neck, without compression, not applicable or unspecified; O99.892 Other specified diseases and conditions complicating childbirth; R00.0 Tachycardia, unspecified; Z87.891 Personal history of nicotine dependence
CPT/HCPCS: 59409; 83033; 85025; 86850; 86870; 86880; 86900; 86901; 86922; 99215; A9270; J7120; Q0162

== ENCOUNTER 2024-06-06 08:01 | Outpatient (CLI) | payer OTHER ==
[2024-06-06 08:40] LABS: CHOL/HDL RATIO 2.7 (<4.4); CHOLESTEROL 175 mg/dL; HDL CHOLESTEROL 64 mg/dL; LDL CHOLESTEROL,CALCULATED 94 mg/dL; LDL/HDL RATIO 1.5 (<4.4); TRIGLYCERIDES 85 mg/dL; VLDL CHOLESTEROL 17 mg/dL
== END 2024-06-06 08:02 | disposition home or self-care (01) ==
LOC: LAB 08:01
PROVIDERS: ATTEND Internal Medicine Cardiovascular Disease
DX: Z82.49 Family history of ischemic heart disease and other diseases of the circulatory system (principal)
CPT/HCPCS: 36415; 80061; 83721

== ENCOUNTER 2024-06-13 12:53 | Emergency (ER) | payer OTHER ==
--- NOTE | 2024-06-13 12:56 | ED Physician Documentation ---
PD HPI CHEST PAIN - Stated complaint Stated Complaint: HIGH HEART RATE, DIZZY - History obtained from History obtained from: Patient - History of Present Illness Timing - onset: How many weeks ago (has had more consistent symptoms the past few weeks. Had heart monitor this past week, returned but not results as yet. More symptoms the past day and today.) Timing - details: Still present, Waxing and waning Quality: No: Pressure, Tightness Location: Left chest Associated symptoms: Feeling faint / dizzy (at times when the heart rate at), Palpitations. No: Shortness of air, Nausea Similar symptoms before: Diagnosis (sinus tachycardia) Recently seen: Clinic (Cardiology) PD PAST MEDICAL HISTORY - Past Medical History Cardiovascular: Other (tachycardia during . Was seen by cardiology.) Respiratory: None Neuro: None Endocrine/Autoimmune: None GI: None : None Musculoskeletal: None Derm: None - Past Surgical History Past Surgical History: No - Present Medications Home Medications: Ambulatory Orders Medication Instructions Recorded Confirmed No115/Iron/Folic Acid 2 tab PO DAILY 10/12/23 06/13/24 [ 19 Chewable Tablet] Sertraline [Zoloft] 100 mg PO HS 10/12/23 06/13/24 Ondansetron Odt [Zofran Odt] 4 mg TL Q6H PRN #10 tablet 11/21/23 06/13/24 Digoxin [Lanoxin] 250 mcg PO DAILY 30 Days #30 tablet 06/13/24 - Allergies Allergies/Adverse Reactions: Allergies Allergy/AdvReac Type Severity Reaction Status Date / Time tioconazole AdvReac Rash Verified 06/13/24 12:57 [From Monistat 1 (tioconazole)] - Social History Does the pt smoke?: No Smoking Status: Former smoker Does the pt drink ETOH?: No - Immunizations Immunizations are current?: Yes PD ED PE NORMAL - Vitals Vital signs reviewed: Yes - General General: Alert and oriented X 3, Well developed/nourished - Neck Neck: Supple, no meningeal sign, No adenopathy, Thyroid normal - Cardiac Cardiac: No murmur. No: RRR (regular but tachycardic at 110) - Respiratory Respiratory: No respiratory distress, Clear bilaterally - Abdomen Abdomen: Soft, Non tender - Derm Derm: Normal color, Warm and dry - Extremities Extremities: No edema, No calf tenderness / cord - Neuro Neuro: Alert and oriented X 3, No motor deficit, No sensory deficit Results - Vitals Vitals: Vital Signs - 24 hr 06/13/24 06/13/24 06/13/24 12:57 13:38 14:36 Temperature 36.4 C L Heart Rate 104 H 89 86 Respiratory 16 16 22 Rate Blood Pressure 127/76 149/14 H 104/63 O2 Saturation 100 99 98 06/13/24 06/13/24 16:00 16:39 Temperature Heart Rate 88 90 Respiratory 16 18 Rate Blood Pressure 120/73 121/77 O2 Saturation 98 98 Oxygen O2 Source Room air - EKG (time done) 13:01 EKG releavant findings:: EKG personally interpreted by author of this note. Relevant findings are: Rate: Rate (enter#) (109) Rhythm: Sinus tachycardia [place]: Normal Intervals: Normal [place] QRS: Normal Ischemia: Normal ST segments. No: ST elevation c/w ischemia, ST depression - Labs Labs: Laboratory Tests 06/13/24 06/13/24 13:35 13:35 WBC 8.0 RBC 5.02 Hgb 13.7 Hct 44.1 MCV 87.8 MCH 27.3 MCHC 31.1 L RDW 13.8 Plt Count 312 MPV 9.1 Neut # (Auto) 4.6 Lymph # (Auto) 2.3 [place] # (Auto) 0.8 Eos # (Auto) 0.2 Baso # (Auto) 0.0 Absolute Nucleated RBC 0.00 Nucleated RBC % 0.0 Sodium 138 Potassium 3.6 Chloride 101 Carbon Dioxide 28 Anion Gap 9.0 BUN 15 Creatinine 0.8 Estimated GFR (MDRD) 89 Glucose 89 Calcium 10.1 Phosphorus 3.2 Magnesium 1.7 Total Bilirubin 0.4 AST 19 ALT 13 Alkaline Phosphatase 97 Total Protein 8.0 Albumin 5.2 Globulin 2.8 Albumin/Globulin Ratio 1.9 Lipase 44 TSH 2.38 Serum HCG, Qual NEGATIVE Random Cortisol 6.3 PD Medical Decision Making - ED course Complexity details: reviewed old records (ECHO and heart monitor from 07/2023 showed noraml EF and no valvular problems. EF 55-60%. Rhythm analysis showed tachycardia over 100 at 51% of the time, minimal PAC/PVCs. No Afib nor SVT. ), reviewed results, re-evaluated patient (HR at 88 at time of dischare. Pt feeling improved. FLuids given in ED. ), considered differential (inappopriate sinus tachycardia with symptoms when fast of lightheaded at times. No chest pain. ), d/w patient, d/w tour consultant (Dr. Donovan, extension educator) ED course: The patient with a history of sinus tachycardia in the past. She first noticed it when last year but has continued with tachycardia without apparent reason episodically. She did have an echocardiogram and a heart monitor last July 2023 which showed a normal echo ejection fraction and no valvular problems. The monitor showed a sinus tachycardia over 50% of the time. Minimal to no PACs and PVCs. No other abnormal rhythms. The patient states she had had less episodes of it after delivering her baby in November and at the time seen Dr. William vazquez cardiology the decision was to not go with any greatly maintain medications as her blood pressure did tend to be on the lower side and was trying to minimize side effects. Subsequently in the last 2 to 3 weeks she has noticed the symptoms more commonly and in the last day or 2 has had heart rate up to 140 but mostly in the 1 10-1 20 range. She does feel lightheaded with it faster. No chest pain or dyspnea. She denies any recent fevers, vomiting, diet change, stimulant use such as caffeine etc. At home she is noticing her heart rate ranging from 1 10-1 40. She states given the increase in symptoms over the last few weeks, she had had a repeat wearable heart monitor that had got sent in just a few days ago and she has not heard the results as yet. We can check electrolytes as well as TSH and test to look for other instigating factors. It does not sound like any dehydration illness fever etc. at this point. Her monitor is showing a sinus tachycardia in the 110 range. Blood pressures 124 systolic. I will contact Dr. Kapadia's office to discuss the symptoms and see if he would at this point prefer to start a low-dose beta-rosa or diltiazem. Dr. Kapadia was not available over couple of hours, so his extension educator cardiology for office, Dr. Donovan, evaluated recent Ziopatch and office notes and directed digoxin Rx with initial dose here in ED. Eval of Epocrates states safe in . Departure - Departure Disposition: Home, Self Care Clinical Impression: Inappropriate sinus node tachycardia Condition: Stable Record reviewed to determine appropriate education?: Yes [facility] Elsy Kapadia MD [Physician No Access] - Prescriptions: Digoxin [Lanoxin] 250 mcg PO DAILY 30 Days #30 tablet Comments: I talked with the on-call lead burner apprentice who reviewed your charts and also the recent Zio patch heart monitor results. He states there were no episodes of abnormal rhythm such as SVT, A-fib, WPW. It did have episodes of fast heart rate (sinus tachycardia). There were not as many episodes as you previously had last fall. Given the symptoms though, the lead burner apprentice did suggest a medication that helps control the heart rate without having an effect on blood pressure per se which was a concern previously with some of the other medications such as beta-blo ckers or calcium blockers. The suggestion from the lead burner apprentice was 1 called digoxin daily. This is okay and breast-feeding. Stay well-hydrated and continue usual other medicines. Be sure to have good potassium containing foods. Your potassium level was in the normal range but on the lower end of normal. Stay well-hydrated otherwise and follow-up with Dr. Kapadia as planned in July. Forms: PCP List Discharge Date/Time: 06/13/24 17:04
[2024-06-13] MEDS: SODIUM CHLORIDE 0.9% 1,000 ML IV STA (13:37)
[2024-06-13 13:40] LABS: BASOPHILS % (AUTO) 0.5 %; EOSINOPHILS # (AUTO) 0.2 10^3/uL (0.0-0.7); EOSINOPHILS % (AUTO) 2.9 %; HCT - HEMATOCRIT 44.1 % (37.0-47.0); HGB - HEMOGLOBIN 13.7 g/dL (12.0-16.0); LYMPHOCYTES # (AUTO) 2.3 10^3/uL (1.5-3.5); LYMPHOCYTES % (AUTO) 29.2 %; MEAN CORPUSCULAR HEMOGLOBIN 27.3 pg (27.0-31.0); MEAN CORPUSCULAR HGB CONC 31.1 g/dL (32.0-36.0); MEAN CORPUSCULAR VOLUME 87.8 fL (81.0-99.0); MEAN PLATELET VOLUME 9.1 fL (7.9-10.8); MONOCYTES # (AUTO) 0.8 10^3/uL (0.0-1.0); MONOCYTES % (AUTO) 9.5 %; NEUTROPHILS # (AUTO) 4.6 10^3/uL (1.5-6.6); NEUTROPHILS % (AUTO) 57.6 %; PLT - PLATELET COUNT 312 10^3/uL (130-450); RED BLOOD COUNT 5.02 10^6/uL (4.20-5.40); RED CELL DISTRIBUTION WIDTH 13.8 % (12.0-15.0)
[2024-06-13 13:54] LABS: ALBUMIN 5.2 g/dL (3.2-5.5); ALBUMIN/GLOBULIN RATIO 1.9 (1.0-2.2); ALKALINE PHOSPHATASE 97 IU/L (42-121); ALT ALANINE AMINOTRANSFERASE 13 IU/L (10-60); AST ASPARTATE AMINOTRANSFERASE 19 IU/L (10-42); BILIRUBIN,TOTAL 0.4 mg/dL (0.2-1.0); BUN - BLOOD UREA NITROGEN 15 mg/dL (6-20); CALCIUM 10.1 mg/dL (8.5-10.3); CARBON DIOXIDE - CO2 28 mmol/L (21-32); CHLORIDE 101 mmol/L (101-111); CREATININE 0.8 mg/dL (0.6-1.3); GFR - MDRD 89 (>89); GLUCOSE 89 mg/dL (74-104); LIPASE 44 U/L (11-82); MAGNESIUM 1.7 mg/dL (1.7-2.3); PHOSPHORUS 3.2 mg/dL (2.5-5.0); POTASSIUM 3.6 mmol/L (3.5-4.5); SODIUM 138 mmol/L (135-145)
[2024-06-13 14:13] LABS: HCG,QUALITATIVE BLOOD NEGATIVE
[2024-06-13 14:21] LABS: THYROID STIMULATING HORMONE 2.38 uIU/mL (0.34-5.60)
[2024-06-13 14:37] VITALS: O2SAT 98
[2024-06-13 16:42] VITALS: BP 121/77
[2024-06-13] MEDS: DIGOXIN 125 MCG TABLET PO STA (16:43)
== END 2024-06-13 17:04 | disposition home or self-care (01) ==
LOC: ED 12:53
DX: I47.11 Inappropriate sinus tachycardia, so stated (principal); Z79.899 Other long term (current) drug therapy; Z87.891 Personal history of nicotine dependence
CPT/HCPCS: 36415; 80053; 82533; 83690; 83735; 84100; 84443; 84703; 85025; 93005; 99284; A9270